=== PATIENT | male | born 1995 | race Caucasian/White ===

== ENCOUNTER 2018-06-24 10:33 | Inpatient (IN) | payer OTHER ==
[2018-06-24 10:45] VITALS: BMI 23.9
--- NOTE | 2018-06-24 11:08 | HP ---
CIWA Score - CIWA Score Nausea/Vomitin Muscle Tremors: 3 Anxiety: 2 Agitation: 2 Paroxysmal Sweats: 1-Minimal Palms Moist Orientation: 0-Oriented Tacttile Disturbances: 1-Very Mild Itch/Numbness Auditory Disturbances: 1-Very Mild Visual Disturbances: 1-Very Mild Sensitivity Headache: 2-Mild CIWA-Ar Total Score: 16 Admission ROS BHS - HPI Chief Complaint: i need help to stop drinking alcohol and ecstasy Allergies/Adverse Reactions: Allergies Allergy/AdvReac Type Severity Reaction Status Date / Time No Known Allergies Allergy Verified 06/24/18 10:59 History of Present Illness: this 23 years old male with alcohol dependence and ecstasy,seen in [facility] this morning, stated need help to stop drinking s/p lap appendectomy in 2016 Exam Limitations: No Limitations - Ebola screening Have you traveled outside of the country in the last 21 days: No Have you had contact with anyone from an Ebola affected area: No Have you been sick,other than usual withdrawal symptoms: No Do you have a fever: No - Review of Systems Constitutional: Loss of Appetite, Malaise, Night Sweats, Changes in sleep, Weakness, Unintentional Wgt. Loss EENT: reports: Nose Congestion Respiratory: reports: No Symptoms reported Cardiac: reports: No Symptoms Reported GI: reports: Nausea, Vomiting, Abdominal cramping : reports: No Symptoms Reported Musculoskeletal: reports: Back Pain, Muscle Pain Integumentary: reports: Dryness Neuro: reports: Headache, Tremors Endocrine: reports: No Symptoms Reported Hematology: reports: No Symptoms Reported Psychiatric: reports: No Sypmtoms Reported, Judgement Intact, Mood/Affect Appropiate, other (insomnia) Patient History - Patient Medical History Hx Anemia: No Hx Asthma: No Hx Chronic Obstructive Pulmonary Disease (COPD): No Hx Cancer: No Hx Cardiac Disorders: No Hx Congestive Heart Failure: No Hx Hypertension: No Hx Hypercholesterolemia: No Hx Pacemaker: No HX Cerebrovascular Accident: No Hx Seizures: No Hx Dementia: No Hx Diabetes: No Hx Gastrointestinal Disorders: No Hx Liver Disease: No Hx Genitourinary Disorders: No Hx Sexually Transmitted Disorders: No Hx Renal Disease (ESRD): No Hx Thyroid Disease: No Hx Human Immunodeficiency Virus (HIV): No (05/17 negative) Hx Hepatitis C: No Hx Depression: No Hx Suicide Attempt: No Hx Bipolar Disorder: No Hx Schizophrenia: No Other Medical History: insomnia - Patient Surgical History Hx Appendectomy: Yes (lap in 2016) - PPD History Previous Implant?: Yes Documented Results: Negative w/o proof Implanted On Prior [facility] Admission?: No PPD to be Administered?: Yes - Smoking Cessation Smoking history: Never smoked - Substance & Tx. History Hx Alcohol Use: Yes Hx Substance Use: Yes Substance Use Type: Alcohol Hx Substance Use Treatment: No - Substances Abused Alcohol-natalio/whisky/beer Route: Oral Frequency: Daily Amount used: fifth/1-6 pk. Age of first use: 12 Date of Last Use: 06/24/18 Family Disease History - Family Disease History Family Disease History: Other: Father (alcohol,cirrhosis,), Mother (dsa overdose ) Admission Physical Exam [facility] - Vital Signs Vital Signs: Vital Signs - 24 hr 06/24/18 10:35 Temperature 97.5 F L Pulse Rate 84 Respiratory 16 Rate Blood Pressure 131/93 - Physical General Appearance: Yes: Moderate Distress, Tremorous, Irritable, Sweating, Anxious HEENTM: Yes: Normal ENT Inspection, COY, Pharynx Normal Respiratory: Yes: Lungs Clear, Normal Breath Sounds, No Respiratory Distress Neck: Yes: Within Normal Limits, Supple, Trachea in good position Breast: Yes: Within Normal Limits Cardiology: Yes: Within Normal Limits, Regular Rhythm, Regular Rate, S1, S2 Abdominal: Yes: Within Normal Limits, Normal Bowel Sounds, Non Tender, Flat, Soft Genitourinary: Yes: Within Normal Limits Back: Yes: Muscle Spasm Musculoskeletal: Yes: Back pain, Muscle Pain Extremities: Yes: Within Normal Limits, Normal Range of Motion, Tremors Neurological: Yes: service director II-XII NML intact, Fully Oriented, Alert, Motor Strength 5/5 Integumentary: Yes: Dry Lymphatic: Yes: Within Normal Limits - Diagnostic (1) Alcohol dependence with uncomplicated withdrawal Current Visit: Yes Status: Acute (2) Ecstasy abuse Current Visit: Yes Status: Acute (3) Insomnia Current Visit: Yes Status: Acute (4) History of laparoscopic appendectomy Current Visit: Yes Status: Acute Cleared for Admission [facility] - Detox or Rehab [facility] Level of Care: Medically Managed Detox Regimen/Protocol: Librium [facility] Breath Alcohol Content Breath Alcohol Content: 0 Urine Drug Screen - Results Drug Screen Negative: No Urine Drug Screen Results: AMP-Amphetamines, MET-Methamphetamine
[2018-06-24] MEDS ORDERED: P-EPHED 60MG/TRIPROLIDI 2.5MG TABLET PO PRN (11:18)
[2018-06-24] MEDS ORDERED: LOPERAMIDE HCL 2 MG CAPSULE PO PRN (11:18)
[2018-06-24] MEDS ORDERED: MAGNESIUM HYDROX 2400MG/30ML ORAL SUSPENSION 30 ML CUP PO PRN (11:18)
[2018-06-24] MEDS ORDERED: MAGNESIUM CITRATE 300 ML BOTTLE PO PRN (11:18)
[2018-06-24] MEDS ORDERED: guaiFENesin/D-METHORPHAN HB 10 ML UNIT-DOSE CUPS PO PRN (11:18)
[2018-06-24] MEDS ORDERED: MAG HYDROX/AL HYDROX/SIMETH 30 ML UNIT-DOSE CUP PO PRN (11:18)
[2018-06-24] MEDS ORDERED: MENTHOL/PHENOL 1 EACH UD MM PRN (11:18)
[2018-06-24] MEDS ORDERED: ACETAMINOPHEN 325 MG TABLET (FP) PO PRN (11:18)
[2018-06-24] MEDS: chlordiazePOXIDE HCL 25 MG CAPSULE PO PRN ×2 (12:20→19:13)
--- NOTE | 2018-06-24 14:29 | CONSULT ---
[facility] Psychiatric Consult - Data Date of interview: 06/24/18 Admission source: [facility] Identifying data: First admission to [facility] for this 23 y/o male referred by the [facility] for detoxification treatment (alcohol,ecstasy).Admitted to [address] [place] [address].Patient is without dependents,domiciled,unemployed and supported on Public Assistance. Substance Abuse History: Discussed in this session.Confirmed by patient. Details in current [facility] report : Smoking history: Never smoked. - Substance & Tx. History. Hx Alcohol Use: Yes. Hx Substance Use: Yes. Substance Use Type: Alcohol. Hx Substance Use Treatment: No. - Substances Abused. Alcohol- natalio/whisky/beer. Route: Oral. Frequency: Daily. Amount used: fifth/1-6 pk. Age of first use: 12. Date of Last Use: 06/24/18 Medical History: History of appendectomy. Psychiatric History: Patient denies. Physical/Sexual Abuse/Trauma History: Patient denies. Additional Comment: Urine Drug Screen Results: AMP-Amphetamines, MET- Methamphetamine.Noted. Mental Status Exam - Mental Status Exam Alert and Oriented to: Time, Place, Person Cognitive Function: Good Patient Appearance: Well Groomed (short stature) Mood: Nervous, Withdrawn, Anxious Affect: Mood Congruent Patient Behavior: Fatigued, Cooperative Speech Pattern: Clear, Appropriate Voice Loudness: Normal Thought Process: Intact, Goal Oriented Thought Disorder: Not Present Hallucinations: Denies Suicidal Ideation: Denies Homicidal Ideation: Denies Insight/Judgement: Poor Sleep: Poorly, Difficulty falling asleep Appetite: Good Muscle strength/Tone: Normal Gait/Station: Normal Psychiatric Findings - Problem List ([place] 1, 2,3) (1) Alcohol dependence with uncomplicated withdrawal Current Visit: Yes Status: Acute (2) Ecstasy abuse Current Visit: Yes Status: Acute (3) Insomnia Current Visit: Yes Status: Acute - Initial Treatment Plan Initial Treatment Plan: Psychoeducatin.Sleep hygiene.Detoxification in progress.Benadryl 50 mg po hs prn (at patient's request for insomnia).Side effects/benefits discussed with the patient.Observation.
[2018-06-24] MEDS: hydrOXYzine PAMOATE 50 MG CAPSULE (FP) PO PRN ×2 (14:32→19:14)
[2018-06-24] MEDS: ONDANSETRON *ODT* 4 MG TABLET SL PRN (14:32)
--- NOTE | 2018-06-24 16:36 | EKG ---
Test Reason : Blood Pressure : / mmHG Vent. Rate : 077 BPM Atrial Rate : 077 BPM P-R Int : 132 ms QRS Dur : 100 ms QT Int : 380 ms P-R-T Axes : 036 037 018 degrees QTc Int : 430 ms NORMAL SINUS RHYTHM WITH SINUS ARRHYTHMIA INCOMPLETE RIGHT BUNDLE BRANCH BLOCK BORDERLINE ECG NO PREVIOUS ECGS AVAILABLE Confirmed by MD Bert, Agustin ([id number]) on 06/24/2018 4:35:40 PM Referred By: Confirmed By:Agustin Noel MD
[2018-06-24] MEDS: IBUPROFEN 400 MG TABLET (FP) PO PRN (17:08)
[2018-06-24] MEDS: chlordiazePOXIDE HCL 25 MG CAPSULE PO SCH ×2 (17:09→22:39)
[2018-06-24] MEDS ORDERED: diphenhydrAMINE HCL 25 MG CAPSULE (FP) PO ONE (21:24)
[2018-06-24] MEDS ORDERED: diphenhydrAMINE HCL 50 MG CAPSULE PO PRN (22:00)
[2018-06-24] MEDS ORDERED: THIAMINE HCL 100 MG TABLET (FP) PO SCH (22:00)
[2018-06-24] MEDS ORDERED: MELATONIN 5 MG TABLETS PO PRN (22:00)
[2018-06-25] MEDS: chlordiazePOXIDE HCL 25 MG CAPSULE PO SCH ×2 (05:06→10:17)
[2018-06-25] MEDS: IBUPROFEN 400 MG TABLET (FP) PO PRN (05:11)
[2018-06-25] MEDS: ONDANSETRON *ODT* 4 MG TABLET SL PRN (05:12)
[2018-06-25] MEDS: hydrOXYzine PAMOATE 50 MG CAPSULE (FP) PO PRN ×2 (07:33→11:53)
[2018-06-25 09:14] VITALS: BP 102/66; PULSE 76; TEMP 98.1
[2018-06-25] MEDS ORDERED: PRENATAL VITAMINS W/ FOLIC ACID TABLET (FP) PO SCH (10:00)
[2018-06-25 10:02] LABS: HEMATOCRIT 48.5 % (35.4-49); MCH 32.4 pg (25.7-33.7); MEAN CELL VOLUME 98.1 fl (80-96); PLATELET COUNT 280 K/MM3 (134-434); RBC 4.94 M/mm3 (4.00-5.60); RDW 12.6 % (11.9-15.9); WHITE BLOOD COUNT 4.9 K/mm3 (4.0-10.0)
[2018-06-25 10:43] LABS: ALBUMIN 4.4 g/dl (3.4-5.0); ALK PHOS 142 U/L (45-117); ANION GAP 12 MMOL/L (8-16); BILIRUBIN,TOTAL 2.9 mg/dL (0.2-1); BLOOD UREA NITROGEN 10 mg/dL (7-18); CALCIUM 9.8 mg/dL (8.5-10.1); CHLORIDE 101 mmol/L (98-107); CO2 27 mmol/L (21-32); CREATININE 0.8 mg/dL (0.55-1.3); GLUCOSE,RANDOM 70 mg/dL (74-106); POTASSIUM 3.9 mmol/L (3.5-5.1); SGOT/AST 138 U/L (15-37); SGPT/ALT 200 U/L (13-61); SODIUM 140 mmol/L (136-145); TOT PROT 8.8 g/dl (6.4-8.2)
--- NOTE | 2018-06-25 13:12 | PN ---
S CIWA - CIWA Score Nausea/Vomitin-Mild Nausea/No Vomiting Muscle Tremors: None Anxiety: 1-Mildly Anxious Agitation: 2 Paroxysmal Sweats: No Perspiration Orientation: 0-Oriented Tacttile Disturbances: 0-None Auditory Disturbances: 0-None Visual Disturbances: 0-None Headache: 0-None Present CIWA-Ar Total Score: 4 BHS Progress Note (SOAP) Subjective: PATIENT PRESENTS WITH AGITATION, ANXIETY, NAUSEA AND IRRITABILITY. PATIENT OBSERVED CALLING STAFF NURSES BITCHES AT NURSES STATION. Objective: 06/25/18 13:10 Vital Signs Temperature 98.1 F 06/25/18 09:13 Pulse Rate 76 06/25/18 09:13 Respiratory Rate 18 06/25/18 09:13 Blood Pressure 102/66 06/25/18 09:13 O2 Sat by Pulse Oximetry (%) Laboratory Tests 06/25/18 06/25/18 06/25/18 05:45 05:45 05:45 WBC 4.9 RBC 4.94 Hgb 16.0 Hct 48.5 MCV 98.1 H MCH 32.4 MCHC 33.0 RDW 12.6 Plt Count 280 MPV 9.0 Sodium 140 Potassium 3.9 Chloride 101 Carbon Dioxide 27 Anion Gap 12 BUN 10 Creatinine 0.8 Creat Clearance w eGFR > 60 Random Glucose 70 L Calcium 9.8 Total Bilirubin 2.9 H AST 138 H ALT 200 H Alkaline Phosphatase 142 H Total Protein 8.8 H Albumin 4.4 RPR Titer Nonreactive PE: ALERT AND ORIENTED IRRITABLE, ANXIOUS AND VERBALLY AGGRESSIVE TOWARDS STAFF EXT NO EDEMA, FULL ROM. AMB AD ERICK Assessment: 06/25/18 13:12 WITHDRAWAL SYNDROME Plan: CONTINUE DETOX PER PROTOCOL MEDICATION REGIMEN REVIEWED ENCOURAGE ORAL FLUIDS CONTINUE TO MONITOR CLINICALLY
[2018-06-25] MEDS ORDERED: chlordiazePOXIDE HCL 25 MG CAPSULE PO SCH (17:00)
[2018-06-26] MEDS ORDERED: chlordiazePOXIDE 5 MG CAPSULE PO SCH (17:00)
[2018-06-27] MEDS ORDERED: chlordiazePOXIDE HCL 10 MG CAPSULE PO SCH (17:00)
== END 2018-06-25 13:00 | disposition left against medical advice (07) | DRG 770 ==
LOC: YASAS 10:33 → Y3N 11:26
PROC: HZ2ZZZZ Detoxification Services for Substance Abuse Treatment (ICD-10-PCS; principal; 2018-06-24)
DX: F10.230 Alcohol dependence with withdrawal, uncomplicated (principal); F15.10 Other stimulant abuse, uncomplicated; G47.00 Insomnia, unspecified; Z90.49 Acquired absence of other specified parts of digestive tract
CPT/HCPCS: 36415; 80053; 85027; 86593; 93005; 93010; Q0162